=== PATIENT | male | born 1955 | race Caucasian/White ===

== ENCOUNTER → 2019-07-13 15:55 | Outpatient (CLI) | payer OTHER, SELFPAY ==
[2019-07-13 17:12] LABS: Absolute Lymphocyte Count 2.35 X10^3/uL (0.83-4.51); Absolute Neutrophil Count 4.1 X10^3/uL (2.0-7.7); Basophil# 0.04 X10^3/uL; Basophil% 0.5 % (0-1); Eosinophil# 0.33 X10^3/uL; Eosinophils% 4.3 % (0-5); Hematocrit 43.8 % (40-54); Hemoglobin 14.3 g/dL (13.0-16.5); Lymphocyte # 2.35 X10^3/ul (4.0); Lymphocyte % 30.6 % (19-41); Mean Corp Hgb Conc 32.6 g/dL (32-36); Mean Platelet Vol. 10.9 fl (6.2-12.0); Monocyte# 0.87 X10^3/uL; Monocyte% 11.3 % (0-10); NRBC Flagged by Analyzer 0 % (0-5); Neutrophil # 4.07 X10^3/uL (2.7-7.7); Platelet Count 183 K/mm3 (150-450); RBC Distribution Width CV 13.6 % (11.6-14.6); RBC Distribution Width SD 47.5 fl (35.1-43.9); Red Blood Count 4.61 M/mm3 (4.6-6.2); White Blood Count 7.7 K/mm3 (4.4-11.0)
[2019-07-13 17:25] LABS: Erythrocyte Sedimentation Rate 7 mm/hr (0-20)
[2019-07-13 17:55] LABS: CRP < 2.90 mg/L (0.0-3.0)
== END ==
PROVIDERS: Family Provider Family Medicine; PCP Family Medicine; Referring Provider Physician Assistant; Visit Provider Physician Assistant
DX: Z96.641 Presence of right artificial hip joint (principal)
CPT/HCPCS: 36415; 85025; 85652; 86140

== ENCOUNTER → 2019-08-25 07:49 | Outpatient (CLI) | payer OTHER, SELFPAY ==
--- NOTE | 2019-08-25 08:30 | MRI_ITS ---
STUDY: MRI RIGHT HIP REASON FOR EXAM: Male, 64 years old. RIGHT HIP PAIN S/P PROTHESIS. Metal reduction sequences TECHNIQUE: Standardized fat and water weighted pulse sequences were obtained in all 3 orthogonal planes. COMPARISON: X-ray August 16, 2011. FINDINGS: There is right hip replacement. There is small cystic focus of the intertrochanteric region of the proximal femur adjacent to the prosthesis, series 7 image . There is no demonstrated fracture. Normal gluteus minimus, medius and iliopsoas tendons and distal insertions. There is no trochanteric, iliopsoas or iliopectineal bursitis. Normal superior and inferior pubic rami. There is spurring at the pubic symphysis. Normal ischial tuberosity. There is tendinosis of the origins of the hamstring tendons arising from the ischial tuberosity. Normal visualized iliac wing, sacroiliac joint, and sacral ala. Normal visualized soft tissue structures of the pelvis. MRI/Lower Ext Joint Only (Routine) IMPRESSION: Right hip replacement. No fracture. Small cystic focus of the proximal femur. Electronically Signed: Papo Ponce MD at 10:15 EST , Service support ,
== END ==
PROVIDERS: Family Provider Family Medicine; PCP Family Medicine; Referring Provider Orthopaedic Surgery; Visit Provider Orthopaedic Surgery
DX: M25.551 Pain in right hip (principal)
CPT/HCPCS: 73721

== ENCOUNTER 2021-09-07 13:53 | Emergency (ER) | payer MEDICARE, SELFPAY ==
[2021-09-07 13:54] VITALS: BP 101/68; PULSE 70; RESP 20; TEMP 36.7; O2SAT 96; BMI 26.6
--- NOTE | 2021-09-07 13:59 | CT_ITS ---
STUDY: CT BRAIN WITHOUT CONTRAST REASON FOR EXAM: Male, 66 years old. FALL / HEAD INJURY / VISION ISSUES / LIGHT HEADED -- WAITING ROOM RADIATION DOSAGE (If Supplied By Facility): CTDIvol = ( 47.06 ) mGy, DLP = ( 943.26 ) mGycm TECHNIQUE: Transaxial CT imaging of the brain was performed without administration of intravenous contrast material. Individualized dose optimization techniques were used for this CT. COMPARISON: No relevant priors. FINDINGS: Normal soft tissue structures. Normal calvarium. Normal size ventricles and extra-axial spaces for the patient''s age. Normal white matter tracts of the cerebral hemispheres. Normal basal ganglia and thalami. Normal brainstem. Normal cerebellum. There is no intracranial hemorrhage. There are no findings of an acute ischemic infarction. Mucosal thickening of the right maxillary sinus. CT/Brain/Head without Contrast IMPRESSION: Normal unenhanced CT scan of the brain. Mucosal thickening at the base of the right maxillary sinus. Electronically Signed: Erasto Vasquez MD at 14:26 EST , Service support ,
[2021-09-07 17:15] VITALS: BP 121/79; PULSE 54; RESP 14; O2SAT 99
--- NOTE | 2021-09-07 17:38 | EKG12_ITS ---
Test Reason : SYNCOPE Blood Pressure : / mmHG Vent. Rate : 052 BPM Atrial Rate : 052 BPM P-R Int : 150 ms QRS Dur : 088 ms QT Int : 446 ms P-R-T Axes : 041 016 005 degrees QTc Int : 414 ms Sinus bradycardia Otherwise normal ECG Confirmed by SHRAVAN GAMBLE, CLAIRE ([id number]), technical editor STEFAN FARAH ([id number]) on 09/08/2021 11:28:32 AM Referred By: PAUL Confirmed By:CLAIRE CHENEY MD
--- NOTE | 2021-09-07 17:45 | EX.ED.DYSGE1 ---
HPI History of Present Illness Chief Complaint: Syncope Informant: patient and spouse/S.O. Narrative Narrative: Patient is a 66-year-old male presenting after syncopal episode. Patient states he started having symptoms 7 days ago. He has had cough, loss of taste and smell, decreased appetite, poor oral intake, lightheadedness, diarrhea, dizziness and blurry vision. He denies chest pain or shortness of breath. This morning he slept until 1030 which is very abnormal for him. When he went to the kitchen he felt lightheaded. He ended up having a syncopal episode and hit the back of his head on the concrete floor. Patient states he felt nauseous and dizzy right before this. He did take Imodium today for his diarrhea. 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 He is no longer on any anticoagulation. He denies any leg swelling. is concerned that he is dehydrated. A feeling of her who is a nurse came over and checked his vital signs and states that everything was normal however because he hit his head she recommend he come to the emergency room. Patient is assuming he has COVID-19 as him and his both have symptoms however has not been able to get tested. He has not had any prior vaccinations. [facility] Medical History Arthritis Home Medications meloxicam 7.5 mg PO DAILY 09/07/21 [History Last Taken Unknown] Allergy/AdvReac Type Severity Reaction Status Date / Time No Known Allergies Allergy Verified 09/07/21 13:56 Social History Smoking Status: Never smoker ROS ROS ED Constitutional Constitutional ED: Reports sweats; Denies chills or fever(s) Eyes Eyes: Reports blurry vision; Denies change in vision ENT ENT ED: Denies ear pain or rhinorrhea Cardiovascular Cardiovascular: Reports other Details: syncope ; Denies chest pain Respiratory/Chest Respiratory/Chest: Reports cough; Denies dyspnea Gastrointestinal Gastrointestinal: Reports diarrhea, nausea, vomiting and other Details: posttussive vomiting ; Denies abdominal pain Genitourinary Genitourinary ED: Denies dysuria or hematuria Musculoskeletal Musculoskeletal: Reports myalgias; Denies arthralgias Integumentary Denies Abrasions or rash Neurologic Neurologic: Reports headache(s) and weakness Psychiatric Psychiatric: Denies depression EXAM Physical Exam Const Vital Signs: 09/07/21 13:54 09/07/21 17:10 09/07/21 17:15 Temperature 98.1 F Temperature Source Temporal Pulse Rate 70 54 L Respiratory Rate 20 H 14 Respiratory Effort Normal Non-Labored Respiratory Pattern Normal Blood Pressure 101/68 121/79 H Blood Pressure Mean 79 93 Pulse Ox 96 99 Oxygen Delivery Method Room Air Room Air 09/07/21 19:24 09/07/21 20:40 Temperature 98.1 F Temperature Source Temporal Pulse Rate 80 74 Respiratory Rate 15 17 Respiratory Effort Respiratory Pattern Blood Pressure 133/71 H 135/71 H Blood Pressure Mean 91 92 Pulse Ox 97 98 Oxygen Delivery Method Room Air Room Air Positive well nourished and well developed General Appearance ED: well developed HEENT Reports TM's clear and moist mucous membranes HEENT Narrative: small contusion right posterior scalp. trauma; Negative for tenderness Tympanic Membrane ED: Yes TM's clear Eyes PERRL and EOMs intact bilaterally Neck no lymphadenopathy, supple and no JVD Resp normal respiratory effort Resp Narrative: Crackles at the base bilaterally Auscultation: diminished lung sounds Cardio regular rate, regular rhythm and no murmurs GI normal to inspection, nondistended, normoactive bowel sounds Palpation: soft Back/Spine no CVA tenderness Cervical Spine: Negative for cervical spine tenderness Thoracic Spine / Upper Back: Negative for thoracic spinal tenderness Extremity normal to inspection General Extremety ED: Negative for edema or tenderness General Extremity: Negative for edema Neuro oriented x3 and CN's II-XII intact bilaterally Sensorium / Orientation: alert Motor Exam: general weakness Psych mental status grossly normal Skin no rashes or lesions noted MDM MDM MDM Narrative Medical decision making narrative: Patient evaluated with syncope and in association with COVID-19 symptoms. He is on day 7 of symptoms. Feels ill but nontoxic. Covid test is ordered as he is not had one formally yet and it is positive. His D-dimer is elevated so CTA is ordered to rule out PE as a cause of his syncope. This is negative for PE but does show bilateral patchy groundglass opacities consistent with COVID-19 pneumonia. There are incidental findings of lung nodules which patient is informed of and will follow up outpatient with his PCP. Patient has a head CT that does not show any acute process. He is not having significant electrolyte abnormalities. His sodium is mildly low. He is given a bolus of IV fluids. Patient ambulates in the ER and does well and he also does not desaturate. Patient will be discharged home with outpatient follow-up. I do not think he requires antibiotics as I think his infection is all viral and not bacterial. Is given return precautions. He is not hypoxic he does not require steroids. Lab Data Attestation: I reviewed the patient's lab results. Labs: Laboratory Results - last 24 hr 09/07/21 09/07/21 09/07/21 17:00 17:00 17:50 WBC 5.3 RBC 4.85 Hgb 14.8 Hct 44.2 MCV 91.1 MCH 30.5 MCHC 33.5 RDW Std Deviation 46.4 H RDW Coeff of Maxwell 13.6 Plt Count 128 L MPV 11.3 Immature Gran % (Auto) 0.200 Neut % (Auto) 64.5 Lymph % (Auto) 26.1 [place] % (Auto) 8.8 Eos % (Auto) 0.0 Baso % (Auto) 0.4 Absolute Neuts (auto) 3.4 Absolute Lymphs (auto) 1.39 Nucleated RBC % 0 D-Dimer Quant (PE/DVT) 1.50 H* Sodium 132 L Potassium 4.3 Chloride 100 Carbon Dioxide 26.0 Anion Gap 6 BUN 17 Creatinine 1.04 Estim Creat Clear Calc 70.81 Est GFR (MDRD) Af Amer 92 Est GFR (MDRD) Non-Af 76 BUN/Creatinine Ratio 16.3 Glucose 103 Lactic Acid Calcium 8.4 L Total Bilirubin 1.10 H AST 33 ALT 30 Alkaline Phosphatase 48 Total Creatine Kinase 112 C-React Prot Ext Range 20.00 H Total Protein 7.7 Albumin 3.4 Globulin 4.3 H Albumin/Globulin Ratio 0.8 L Procalcitonin 09/07/21 09/07/21 17:50 17:50 WBC RBC Hgb Hct MCV MCH MCHC RDW Std Deviation RDW Coeff of Maxwell Plt Count MPV Immature Gran % (Auto) Neut % (Auto) Lymph % (Auto) [place] % (Auto) Eos % (Auto) Baso % (Auto) Absolute Neuts (auto) Absolute Lymphs (auto) Nucleated RBC % D-Dimer Quant (PE/DVT) Sodium Potassium Chloride Carbon Dioxide Anion Gap BUN Creatinine Estim Creat Clear Calc Est GFR (MDRD) Af Amer Est GFR (MDRD) Non-Af BUN/Creatinine Ratio Glucose Lactic Acid 1.0 Calcium Total Bilirubin AST ALT Alkaline Phosphatase Total Creatine Kinase C-React Prot Ext Range Total Protein Albumin Globulin Albumin/Globulin Ratio Procalcitonin 0.12 H Radiography Chest X-Ray - ED: 1 View, Read by ED Physician, Read by Radiologist, Right Infiltrate and Left Infiltrate Diagnostic Testing: Clinical Impression(s) from Imaging Studies Brain CT 09/07/21 13:59 IMPRESSION: Normal unenhanced CT scan of the brain. Mucosal thickening at the base of the right maxillary sinus. Electronically Signed: Erasto Vasquez MD at 14:26 EST , Service support , Chest X-Ray 09/07/21 18:25 IMPRESSION: Bibasilar groundglass pulmonary infiltrates consistent with COVID pneumonia. Electronically Signed: Mark Juan DO at 19:37 EST Tel [phone], Service support , Chest CTA 09/07/21 18:52 IMPRESSION: 1. No evidence of pulmonary embolus. 2. No aortic dissection or aneurysm. 3. Patchy peripheral groundglass infiltrates. Question: Pneumonia. 4. Soft tissue nodules in the right middle lobe. Fleischner Society Guidelines for low-risk patients, no follow-up is necessary. For high-risk patients (smoking history or other known risk factors) an optional chest CT at 12 months could be performed. Electronically Signed: Mark Juan DO at 20:30 EST Tel [phone], Service support , Rhythm Strip Rhythm Strip: Sinus Rhythm Rate: 52 Ectopy: None EKG Initial EKG: Attestation: I personally reviewed and interpreted this EKG as follows: Interpretation: Sinus Bradycardia Comments: Sinus bradycardia rate of 52 Normal axis Normal intervals Normal ST segments No change from to prior EKG on 06/13/2014 Discharge Plan Triage Chief Complaint: Syncope ED Provider: Angela Fuentes Dx/Rx/DC Orders Clinical Impression: Episode of syncope, Closed head injury, Pneumonia due to 2019-nCoV Instructions: Coronavirus Disease 2019 (COVID-19): Caring for Yourself or Others, ED Dizziness or Syncope ... Prescriptions: No Action meloxicam 15 mg tablet 7.5 mg PO DAILY RF: 0 Primary Care Provider: Cem Hooks Referrals: Cem Hooks DO [Primary Care Provider] - Disposition Disposition: Home, Self Care
[2021-09-07 17:52] LABS: Absolute Lymphocyte Count 1.39 X10^3/uL (0.83-4.51); Absolute Neutrophil Count 3.4 X10^3/uL (2.0-7.7); Basophil# 0.02 X10^3/uL; Basophil% 0.4 % (0-1); Hematocrit 44.2 % (40-54); Hemoglobin 14.8 g/dL (13.0-16.5); Lymphocyte # 1.39 X10^3/ul (0.83-4.51); Lymphocyte % 26.1 % (19-41); Mean Corp Hgb Conc 33.5 g/dL (32-36); Mean Corpuscular Hgb 30.5 pg (27.0-32.0); Mean Corpuscular Volume 91.1 fL (80-94); Mean Platelet Vol. 11.3 fl (6.2-12.0); Monocyte# 0.47 X10^3/uL; Monocyte% 8.8 % (0-10); NRBC Flagged by Analyzer 0 % (0-5); Neutrophil # 3.44 X10^3/uL (2.7-7.7); Neutrophil % 64.5 % (47-70); Platelet Count 128 K/mm3 (150-450); RBC Distribution Width CV 13.6 % (11.6-14.6); RBC Distribution Width SD 46.4 fl (35.1-43.9); Red Blood Count 4.85 M/mm3 (4.6-6.2); White Blood Count 5.3 K/mm3 (4.4-11.0)
[2021-09-07] MEDS: 0.9% Normal Saline 1,000 ML 999 ML IV (17:59)
[2021-09-07 18:02] LABS: ALB/GLOB Ratio 0.8 RATIO (0.9-2.4); AST(SGOT) 33 U/L (15-37); Alanine Aminotransfer ALT/SGPT 30 U/L (16-61); Albumin, Serum 3.4 g/dL (3.2-5.0); Alkaline Phosphatase 48 U/L (45-117); Anion Gap 6 (5-15); BUN 17 mg/dL (7-18); BUN/Creat Ratio 16.3 RATIO (10-20); CPK Total, Creatine Kinase 112 U/L (39-308); Calcium,Total 8.4 mg/dL (8.5-10.1); Chloride 100 mmol/L (98-107); Creatinine, Serum 1.04 mg/dL (0.70-1.30); EST Glomerular Filtration Rate 76 mL/min (>60); Est Glom Filt Rate - Afr Amer 92 mL/min (>60); Estimated Creatinine Clearance 70.81 ml/min; Globulin 4.3 g/dL (2.2-4.2); Glucose 103 mg/dL (74-106); Potassium 4.3 mmol/L (3.5-5.1); Protein, Total 7.7 g/dL (6.4-8.2); Sodium Level 132 mmol/L (136-145)
--- NOTE | 2021-09-07 18:25 | RAD_ITS ---
STUDY: X-RAY CHEST REASON FOR EXAM: Male, 66 years old. Cough. Lightheadedness and weakness. Syncopal episode at home with trauma to the back of the head. Day 6 of COVID symptoms. TECHNIQUE: Single AP portable view of the chest. COMPARISON: None. FINDINGS: Lungs are well-expanded. There is minimal ground glass infiltrates at the lung bases. There is no demonstrated pleural abnormality. Normal size heart. Normal mediastinum and nino. Normal visualized pulmonary arteries. Normal visualized aortic arch and descending thoracic aorta. Normal visualized thoracic spine. Normal visualized ribs, clavicles, and shoulders. There is no demonstrated abnormality of the visualized soft tissue structures of the upper abdomen. RAD/Chest 1 View (Portable) IMPRESSION: Bibasilar groundglass pulmonary infiltrates consistent with COVID pneumonia. Electronically Signed: Mark Juan DO at 19:37 EST Tel [phone], Service support ,
--- NOTE | 2021-09-07 18:52 | CT_ITS ---
STUDY: CTA CHEST REASON FOR EXAM: Male, 66 years old. Syncope. Elevated d-dimer. RADIATION DOSAGE (If Supplied By Facility): CTDIvol = ( 9.82 ) mGy, DLP = ( 362.67 ) mGycm TECHNIQUE: The examination was performed with the intravenous administration of IV 100mL Isovue-370. Post-processing of the angiographic images was performed, with multiplanar reformation and 3D reconstruction. Individualized dose optimization techniques were used for this CT. COMPARISON: Chest, 09/07/2021 FINDINGS: Normal enhancement of the main pulmonary artery and right and left pulmonary arteries. Normal enhancement of the bilateral peripheral pulmonary arteries. There is no demonstrated pulmonary embolism. Mild atherosclerotic tortuosity of the thoracic aorta with no aneurysm. There is no demonstrated aortic dissection. Normal heart and pericardium. Nonspecific subcentimeter mediastinal lymphadenopathy. Normal hilar regions. Normal visualized trachea and bronchi. The lungs are well expanded. Is patchy peripheral groundglass infiltrates most marked in the lung bases. There is a 5 mm soft tissue nodule in the right middle lobe seen best on image 94 of series 2. On image 97 there is a pleural-based soft tissue nodule measuring 4 mm. On image 103 there is a 2 mm soft tissue nodule in the right middle lobe along the horizontal fissure. Normal pleura. Normal chest wall structures. There are degenerative changes of thoracic spine. Normal visualized upper abdomen. CT/CTA Chest W/WO Contrast IMPRESSION: 1. No evidence of pulmonary embolus. 2. No aortic dissection or aneurysm. 3. Patchy peripheral groundglass infiltrates. Question: Pneumonia. 4. Soft tissue nodules in the right middle lobe. Fleischner Society Guidelines for low-risk patients, no follow-up is necessary. For high-risk patients (smoking history or other known risk factors) an optional chest CT at 12 months could be performed. Electronically Signed: Mark Juan DO at 20:30 EST Tel [phone], Service support ,
[2021-09-07 18:55] LABS: Procalcitonin 0.12 ng/mL (0.00-0.09)
[2021-09-07 19:24] VITALS: BP 133/71; PULSE 80; RESP 15; RESP 18; TEMP 36.7; O2SAT 97
[2021-09-07 20:34] VITALS: O2SAT 98
[2021-09-07 20:40] VITALS: BP 135/71; PULSE 74; RESP 17; O2SAT 98
== END 2021-09-07 21:13 | disposition home or self-care (01) ==
PROVIDERS: Emergency Provider Emergency Medicine; PCP Family Medicine; Visit Provider Emergency Medicine
DX: U07.1 COVID-19 (principal); J12.82 Pneumonia due to coronavirus disease 2019; S09.90XA Unspecified injury of head, initial encounter; R55 Syncope and collapse; Z86.711 Personal history of pulmonary embolism; W01.198A Fall on same level from slipping, tripping and stumbling with subsequent striking against other object, initial encounter; Y92.010 Kitchen of single-family (private) house as the place of occurrence of the external cause
CPT/HCPCS: 70450; 71045; 71275; 80053; 82550; 83605; 84145; 85025; 85379; 86140; 87040; 87426; 93005; 96360; 99284; J7030; Q9967

== ENCOUNTER 2021-09-11 18:34 | Observation (INO) | payer MEDICARE, SELFPAY ==
[2021-09-11] VITALS (7 sets, daily range): BP systolic 114–121; BP diastolic 75–78; PULSE 58–73; RESP 18–22; TEMP 36.8–37.9; O2SAT 87–97; BMI 27.1
--- NOTE | 2021-09-11 18:46 | EKG12_ITS ---
Test Reason : SOB Blood Pressure : / mmHG Vent. Rate : 068 BPM Atrial Rate : 068 BPM P-R Int : 132 ms QRS Dur : 088 ms QT Int : 406 ms P-R-T Axes : 029 004 -02 degrees QTc Int : 431 ms Normal sinus rhythm Normal ECG Confirmed by SHRAVAN GAMBLE, CLAIRE ([id number]), research editor DWIGHT PRIETO ([id number]) on 09/16/2021 11:20:03 AM Referred By: RAVI Confirmed By:CLAIRE CHENEY MD
[2021-09-11 19:10] LABS: Absolute Neutrophil Count 4.9 X10^3/uL (2.0-7.7); Basophil# 0.01 X10^3/uL; Basophil% 0.2 % (0-1); Eosinophil# 0.01 X10^3/uL; Eosinophils% 0.2 % (0-5); Hematocrit 39.5 % (40-54); Hemoglobin 13.1 g/dL (13.0-16.5); Lymphocyte % 14.5 % (19-41); Mean Corp Hgb Conc 33.2 g/dL (32-36); Mean Corpuscular Hgb 30.1 pg (27.0-32.0); Mean Corpuscular Volume 90.8 fL (80-94); Mean Platelet Vol. 10.6 fl (6.2-12.0); Monocyte# 0.33 X10^3/uL; Monocyte% 5.3 % (0-10); NRBC Flagged by Analyzer 0 % (0-5); Neutrophil # 4.91 X10^3/uL (2.7-7.7); POSITIVE MORPHOLOGY YES; Platelet Count 176 K/mm3 (150-450); RBC Distribution Width CV 13.7 % (11.6-14.6); Red Blood Count 4.35 M/mm3 (4.6-6.2); White Blood Count 6.2 K/mm3 (4.4-11.0)
[2021-09-11] MEDS: Acetaminophen 500 MG Tablet 1000 MG PO (19:11)
[2021-09-11 19:12] LABS: Differential Indicated SCAN CRITERIA MET
--- NOTE | 2021-09-11 19:15 | RAD_ITS ---
STUDY: X-RAY CHEST REASON FOR EXAM: Male, 66 years old. CHEST PAIN cough TECHNIQUE: XR Chest 1 View COMPARISON: 09.07.21 FINDINGS: There are bilateral pleural effusions. There are bilateral infiltrates. Normal size heart. Normal mediastinum and nino. Normal visualized pulmonary arteries. There is atherosclerotic calcification of the aortic arch with tortuosity. There are diffuse degenerative changes of the visualized thoracic spine. There is degenerative osteoarthritis of the bilateral shoulders. There is no demonstrated abnormality of the visualized soft tissue structures of the upper abdomen. RAD/Chest 1 View (Portable) IMPRESSION: Pulmonary findings appear worse. Electronically Signed: Santos Ryan MD at 19:46 EST , Service support ,
[2021-09-11 19:30] LABS: ALB/GLOB Ratio 0.6 RATIO (0.9-2.4); AST(SGOT) 36 U/L (15-37); Alanine Aminotransfer ALT/SGPT 22 U/L (16-61); Albumin, Serum 2.6 g/dL (3.2-5.0); Alkaline Phosphatase 41 U/L (45-117); Anion Gap 8 (5-15); BUN 16 mg/dL (7-18); BUN/Creat Ratio 18.2 RATIO (10-20); Chloride 101 mmol/L (98-107); Creatinine, Serum 0.88 mg/dL (0.70-1.30); EST Glomerular Filtration Rate 92 mL/min (>60); Est Glom Filt Rate - Afr Amer 112 mL/min (>60); Estimated Creatinine Clearance 83.69 ml/min; Globulin 4.1 g/dL (2.2-4.2); Glucose 118 mg/dL (74-106); Potassium 3.7 mmol/L (3.5-5.1); Protein, Total 6.7 g/dL (6.4-8.2); Sodium Level 135 mmol/L (136-145); Troponin-I HS 17 pg/mL (3.0-78.0)
[2021-09-11 19:58] LABS: D-Dimer Quantitative (DVT/PE) 2.13 FEU/ug/m (0.27-0.49)
[2021-09-11 20:03] LABS: Platelet Estimate ADEQUATE (ADEQ); Red Cell Morphology NORM C+C NORMAL (NORM C&C)
[2021-09-11] MEDS: dexAMETHasone 10 MG/ML Vial 6 MG IV (20:46)
--- NOTE | 2021-09-11 21:31 | EDS_ITS ---
HPI History of Present Illness Chief Complaint: Shortness of Breath Narrative Narrative: 66-year-old female on day 11 of COVID-19 symptoms. He is presenting with low pulse ox is at home and states has been in the 70s. Patient continues to have fevers. He states he is hydrating better now. He is able to eat and drink. Denies abdominal pain. He states he does not have any chest pain but he is short of breath. Patient was not vaccinated for COVID-19. He was not referred for monoclonal antibodies on his last visit but also states he would not have taken them. [facility] Medical History Arthritis Home Medications meloxicam 7.5 mg PO DAILY 09/07/21 [History Last Taken Unknown] doxycycline hyclate 100 mg PO BID 09/11/21 [History Last Taken Unknown] meclizine 25 mg PO TID PRN 09/11/21 [History Last Taken Unknown] Allergy/AdvReac Type Severity Reaction Status Date / Time No Known Allergies Allergy Verified 09/07/21 13:56 Surgical History History of right hip replacement History of rotator cuff surgery Social History Smoking Status: Never smoker ROS ROS ED Constitutional Constitutional ED: Reports chills and fever(s) Eyes Eyes: Denies blurry vision or diplopia ENT ENT ED: Denies rhinorrhea or sore throat Cardiovascular Cardiovascular: Denies chest pain or palpitations Respiratory/Chest Respiratory/Chest: Reports cough, dyspnea and dyspnea on exertion Gastrointestinal Gastrointestinal: Reports diarrhea; Denies abdominal pain, nausea or vomiting Genitourinary Genitourinary ED: Denies dysuria or hematuria Musculoskeletal Musculoskeletal: Reports myalgias; Denies arthralgias or neck pain Integumentary Denies Abrasions or rash Neurologic Neurologic: Reports headache(s); Denies paresthesias or weakness EXAM Physical Exam Const Vital Signs: 09/11/21 18:35 09/11/21 18:37 09/11/21 18:38 Temperature 100.2 F H 100.2 F H Temperature Source Oral Oral Pulse Rate 73 73 Respiratory Rate 22 H 22 H Respiratory Depth Shallow Respiratory Pattern Tachypnea Blood Pressure 116/78 116/78 Blood Pressure Mean 90 90 Pulse Ox 87 87 94 Oxygen Delivery Method Room Air Room Air Nasal Cannula Oxygen Flow Rate (L/min) 2 09/11/21 19:30 Temperature Temperature Source Pulse Rate 65 Respiratory Rate 18 Respiratory Depth Respiratory Pattern Blood Pressure 121/78 H Blood Pressure Mean 92 Pulse Ox 97 Oxygen Delivery Method Nasal Cannula Oxygen Flow Rate (L/min) 2 Positive well nourished General Appearance ED: NAD; Negative for pallor HEENT Reports dry mucous membranes atraumatic Mouth ED: Yes dry mucous membranes Mouth: dry mucous membranes Eyes PERRL and EOMs intact bilaterally Neck no lymphadenopathy and supple Resp normal respiratory effort and clear to auscultation bilaterally Cardio regular rate and regular rhythm GI non-tender and non-distended Palpation: soft Neuro oriented x3 and CN's II-XII intact bilaterally Sensorium / Orientation: alert Motor Exam: strength 5/5 throughout Psych mental status grossly normal Thought Process: normal thought process Skin General Skin Exam: Negative for jaundice or pallor Rashes: no rashes MDM MDM MDM Narrative Medical decision making narrative: 66-year-old male presenting on day 11 of COVID-19 symptoms. He is already tested positive for COVID-19 here at [facility]. He returns with low pulse ox. When ambulated on 4 L he still maintains a pulse ox of 86%. He is stable while sitting in the bed. EKG is sinus rhythm with a ventricular rate of 68 bpm without sign of ischemic change or dysrhythmia on my interpretation. CBC shows no leukocytosis. Hemoglobin hematocrit are stable. Platelets are normal. Creatinine is within normal limits and electrolytes are unremarkable. LFTs are normal. D-dimer was elevated at 2.13 however the patient refuses another CTA because he does not want to go to the scanner because it hurts his shoulders to go up over his head. High-sensitivity troponin is 17. I counseled him that while it is unlikely that he had a blood clot form in the interim since his last CTA his D-dimer was further elevated and I cannot prove that he does not have a blood clot and he acknowledges the risk of but still refuses due to shoulder pain. His is in the room and she acknowledges understanding of his risk as well. His chest x-ray shows bilateral pulmonary infiltrates which appear to be worse on my interpretation and the radiologist does agree. Patient requiring oxygen now and he was given dexamethasone. Patient will be discussed with the hospitalist for admission. Impression: 1 COVID-19 pneumonitis 2. Elevated D-dimer 3. Hypoxic respiratory failure Lab Data Labs: Laboratory Results - last 24 hr 09/11/21 09/11/21 09/11/21 18:48 18:48 18:48 WBC 6.2 RBC 4.35 L Hgb 13.1 Hct 39.5 L MCV 90.8 MCH 30.1 MCHC 33.2 RDW Std Deviation 46.0 H RDW Coeff of Maxwell 13.7 Plt Count 176 MPV 10.6 Immature Gran % (Auto) 0.800 Neut % (Auto) 79.0 H Lymph % (Auto) 14.5 L [place] % (Auto) 5.3 Eos % (Auto) 0.2 Baso % (Auto) 0.2 Absolute Neuts (auto) 4.9 Absolute Lymphs (auto) 0.90 Nucleated RBC % 0 Platelet Estimate ADEQUATE RBC Morphology NORM C+C D-Dimer Quant (PE/DVT) 2.13 H* Sodium 135 L Potassium 3.7 Chloride 101 Carbon Dioxide 26.0 Anion Gap 8 BUN 16 Creatinine 0.88 Estim Creat Clear Calc 83.69 Est GFR (MDRD) Af Amer 112 Est GFR (MDRD) Non-Af 92 BUN/Creatinine Ratio 18.2 Glucose 118 H Calcium 8.0 L Total Bilirubin 1.00 AST 36 ALT 22 Alkaline Phosphatase 41 L Troponin I High Sens 17 Total Protein 6.7 Albumin 2.6 L Globulin 4.1 Albumin/Globulin Ratio 0.6 L Radiography Diagnostic Testing: Clinical Impression(s) from Imaging Studies Chest X-Ray 09/11/21 19:15 IMPRESSION: Pulmonary findings appear worse. Electronically Signed: Santos Ryan MD at 19:46 EST , Service support , Discharge Plan Triage Chief Complaint: Shortness of Breath ED Provider: Scott Hung Dx/Rx/DC Orders Prescriptions: No Action meloxicam 15 mg tablet 7.5 mg PO DAILY RF: 0 meclizine 25 mg Tablet 25 mg PO TID PRN (Reason: Dizziness) RF: 0 doxycycline hyclate 100 mg Tablet 100 mg PO BID RF: 0 Primary Care Provider: Cem Hooks
--- NOTE | 2021-09-11 22:02 | HP.PCM.HOS_ITS ---
HPI - General HPI Narrative ENRIQUE FORD, is a 66 M with no significant medical history presenting with a Covid-like symptoms. Patient has had shortness of breath for the past 4 days. On the day of presentation his shortness of breath worsened. He was found to be hypoxic with home oxygen saturation of 81%. Associated with his symptoms is fever, chills, diarrhea, body aches, anorexia. He had anosmia and dysgeusia which has since improved. His Covid-like symptoms has been going for 11days. Patient was at hospital on 09/07/2019 and had a chest CTA. At that time he complained of diarrhea, weakness and a fall. A covid test at that time was positive for COVID-19. On this presentation D-dimer was elevated more than previous. CTA chest was offered but patient refused it because he had pain with Chest CTA. Previously, patient was referred for monoclonal antibody. However reportedly patient did not qualify at that time and even if he qualified he would not received the monoclonal antibody because of stories he has had about monoclonal antibodies. Patient is on antibiotics (doxycycline) for a possible superimposed bacterial pneumonia. [facility] Medical History Arthritis Home Medications meloxicam 7.5 mg PO DAILY 09/07/21 [History Last Taken Unknown] doxycycline hyclate 100 mg PO BID 09/11/21 [History Last Taken Unknown] meclizine 25 mg PO TID PRN 09/11/21 [History Last Taken Unknown] Allergy/AdvReac Type Severity Reaction Status Date / Time No Known Allergies Allergy Verified 09/07/21 13:56 Family History Other Atrial fibrillation Glaucoma Surgical History History of right hip replacement History of rotator cuff surgery Social History Smoking Status: Never smoker ROS ROS Narrative Constitutional: Reports fever, chills, fatigue, anorexia. Denies change in weight Eyes: Denies blurry vision, change in eye color, change in vision, discharge from eye(s), double vision, erythema, eye pain, loss of vision or other HEENT: Denies abnormal hearing, dysphagia, ear pain, epistaxis, headache(s), hearing loss, nasal congestion, nasal discharge, post nasal drip, sinus pressure, sore throat or other Cardiovascular: Denies chest pain or palpitations. Respiratory/Chest: Reports a productive cough. Reports shortness of breath. Denies wheezes Gastrointestinal: Reports diarrhea. Denies abdominal pain, coffee ground emesis, constipation, dyspepsia, hematemesis, hematochezia, , melena, nausea, vomiting or other Genitourinary: Denies burning urination, difficulty urinating, dysuria, hematuria, nocturia, urinary frequency, urinary hesitancy, urinary incontinence, urinary urgency or other Musculoskeletal: Reports myalgia. Denies arthralgias, joint pain. Neurologic: Denies abnormal gait, abnormal speech, confusion, disequilibrium, dizziness, focal weakness, headache(s), numbness, paresthesias, seizure-like activity, seizures, syncope, tingling, tremor(s) or other Psychiatric: Denies anxiety, depression, homicidal ideation, suicidal ideation or other Endocrinology: Denies change in body appearance, cold intolerance, excessive sweating, heat intolerance, polydipsia, polyuria or other Hematologic/Lymphatic: Denies anemia, easy bleeding, easy bruising, lymphadenopathy or other Integumentary: Denies rashes Allergic/Immunologic: Denies rhinitis, hives, eczema, asthma or other Vital Signs Vital Signs Vital Signs: 09/11/21 18:35 09/11/21 18:37 09/11/21 18:38 Temperature 100.2 F H 100.2 F H Temperature Source Oral Oral Pulse Rate 73 73 Respiratory Rate 22 H 22 H Respiratory Depth Shallow Respiratory Pattern Tachypnea Blood Pressure 116/78 116/78 Blood Pressure Mean 90 90 Pulse Ox 87 87 94 Oxygen Delivery Method Room Air Room Air Nasal Cannula Oxygen Flow Rate (L/min) 2 09/11/21 19:30 09/11/21 21:35 Temperature 98.3 F Temperature Source Temporal Pulse Rate 65 58 L Respiratory Rate 18 19 H Respiratory Depth Respiratory Pattern Blood Pressure 121/78 H 114/75 Blood Pressure Mean 92 88 Pulse Ox 97 94 Oxygen Delivery Method Nasal Cannula Nasal Cannula Oxygen Flow Rate (L/min) 2 2 Weight Weight: 83.5 kg Body Mass Index (BMI) 27.1 Physical Exam Narrative Physical exam: General: Well-nourished, well-developed. Head: Normocephalic, atraumatic, no tenderness Eyes: PERRLA, EOMI ENT, no trauma, moist mucous membranes, no rhinorrhea Neck: Nontender, full range of motion, no spinal tenderness, deformities, step- off CVS: Regular rate and rhythm. S1-S2 present. No murmur, gallop or rub. Respiratory : Rales, chest wall nontender, no wheezing Abdomen: Soft, nontender, nondistended, normal bowel sounds, no masses : Deferred Back: Nontender, no CVA tenderness, no midline spinal tenderness, deformities, s tep-offs Extremities: Nontender full range of motion, no trauma Skin: Normal color, no trauma, abrasions Neuro: Alert, oriented, cranial nerves II through XII grossly intact. Psychiatry: Normal mood. Normal affect. Not depressed. Not anxious. Results Lab / Micro Data Result Diagrams: 09/11/21 18:48 09/11/21 18:48 Labs: Laboratory Results - last 24 hr 09/11/21 18:48: WBC 6.2, RBC 4.35 L, Hgb 13.1, Hct 39.5 L, MCV 90.8, MCH 30.1, MCHC 33.2, RDW Std Deviation 46.0 H, RDW Coeff of Maxwell 13.7, Plt Count 176, MPV 10.6, Immature Gran % (Auto) 0.800, Neut % (Auto) 79.0 H, Lymph % (Auto) 14.5 L, [place] % (Auto) 5.3, Eos % (Auto) 0.2, Baso % (Auto) 0.2, Absolute Neuts (auto) 4.9, Absolute Lymphs (auto) 0.90, Nucleated RBC % 0, Platelet Estimate ADEQUATE, RBC Morphology NORM C+C 09/11/21 18:48: D-Dimer Quant (PE/DVT) 2.13 H* 09/11/21 18:48: Sodium 135 L, Potassium 3.7, Chloride 101, Carbon Dioxide 26.0, Anion Gap 8, BUN 16, Creatinine 0.88, Estim Creat Clear Calc 83.69, Est GFR (MDRD) Af Amer 112, Est GFR (MDRD) Non-Af 92, BUN/Creatinine Ratio 18.2, Glucose 118 H, Calcium 8.0 L, Total Bilirubin 1.00, AST 36, ALT 22, Alkaline Phosphatase 41 L, Troponin I High Sens 17, Total Protein 6.7, Albumin 2.6 L, Globulin 4.1, Albumin/Globulin Ratio 0.6 L Radiology Impression Chest X-Ray 09/11/21 19:15 IMPRESSION: Pulmonary findings appear worse. Electronically Signed: Santos Ryan MD at 19:46 EST , Service support , Assessment & Plan Assessment/Plan (1) Acute hypoxemic respiratory failure: (2) Pneumonia due to 2019-nCoV: PLAN: Acute hypoxemic respiratory failure secondary to SARS- COV 2 Per nursing ED ambulation with pulse ox patient oxygen saturation with 4 L was 86% with ambulation. D-dimer 2.13. Review of previous D-dimer on 09/07/2021 was1.50 Rapid Covid test on 09/07/2021 was positive Presentation chest x-ray as well as a chest x-ray and CTA on 09/07/2021 was independently interpreted. I agree with radiologist interpretation current chest x-ray appears worse. Check procalcitonin. Received Decadron IV at the emergency department. Decadron p.o. ordered while inpatient. Patient is outside window of remdesivir. Review of labs showed a normal white count of 6.2. Trend CBC and CMP Tylenol for fever Tessalon Perles ordered. Reportedly on home loperamide, continued Will continue his home prescribed doxycycline per patient request. Eliquis ordered DVT Prophylaxis: Eliquis as above. Charges/Coding Visit Charges Inpatient E&M: 84553 Init Hosp L3
[2021-09-12] VITALS (22 sets, daily range): BP systolic 118–130; BP diastolic 68–86; PULSE 45–72; RESP 16–20; TEMP 35.5–36.7; O2SAT 5–98; BMI 24.5
[2021-09-12] MEDS: 0.9% Saline Lock 10 ML Syringe IV ×2 (02:27→20:40)
--- NOTE | 2021-09-12 02:30 | PCS.PANDOC ---
PANDEMIC DOCUMENTATION INITIATED: Date: 04/20/2021 Time: 190
[2021-09-12] MEDS: APIXABAN 5 MG TABLET 10 MG PO ×2 (02:31→10:04)
[2021-09-12] MEDS: Acetaminophen 325 MG Tablet 650 MG PO (04:58)
--- NOTE | 2021-09-12 07:40 | CT_ITS ---
STUDY: CTA CHEST REASON FOR EXAM: Male, 66 years old. Pe RADIATION DOSAGE (If Supplied By Facility): CTDIvol = ( 11.75 ) mGy, DLP = ( 465.06 ) mGycm TECHNIQUE: The examination was performed with the intravenous administration of IV 100mL Isovue-370. Post-processing of the angiographic images was performed, with multiplanar reformation and 3D reconstruction. Individualized dose optimization techniques were used for this CT. COMPARISON: September 07, 2021 CT angiogram chest FINDINGS: Normal enhancement of the main pulmonary artery and right and left pulmonary arteries. Normal enhancement of the bilateral peripheral pulmonary arteries. There is no demonstrated pulmonary embolism. The ascending thoracic aorta measures 3.9 x 3.9 cm. Aorta is partially calcified. At the timing of this study there is limited contrast enhancement of the aorta. There is mild to moderate cardiac enlargement. There is trace coronary calcification. There are reactive appearing mediastinal and hilar lymph nodes measuring 1 to 2 cm. Normal visualized trachea and bronchi. Since prior study there is worsening of the L2 focal groundglass opacities with predominance in the lung periphery. There is worsening consolidation of the lung bases. Normal pleura. Normal chest wall structures. There are degenerative changes of thoracic spine. Normal visualized upper abdomen. CT/CTA Chest W/WO Contrast IMPRESSION: Worsening multifocal pneumonia with greater consolidation in the lung bases. A pattern suspicious for Covid pneumonia. Mild to moderate cardiac enlargement. Borderline aneurysmal dilatation of the ascending thoracic aorta. No visualized pulmonary embolism. Electronically Signed: Debbie Chandler MD at 9:55 EST Tel , Service support ,
[2021-09-12 08:35] LABS: Absolute Lymphocyte Count 1.01 X10^3/uL (0.83-4.51); Absolute Neutrophil Count 2.9 X10^3/uL (2.0-7.7); Basophil# 0.02 X10^3/uL; Basophil% 0.5 % (0-1); Hematocrit 42.9 % (40-54); Hemoglobin 14.2 g/dL (13.0-16.5); Lymphocyte # 1.01 X10^3/ul (0.83-4.51); Lymphocyte % 23.9 % (19-41); Mean Corp Hgb Conc 33.1 g/dL (32-36); Mean Corpuscular Hgb 30.3 pg (27.0-32.0); Mean Corpuscular Volume 91.7 fL (80-94); Mean Platelet Vol. 10.5 fl (6.2-12.0); Monocyte# 0.23 X10^3/uL; Monocyte% 5.5 % (0-10); NRBC Flagged by Analyzer 0 % (0-5); Neutrophil # 2.92 X10^3/uL (2.7-7.7); Neutrophil % 69.2 % (47-70); POSITIVE MORPHOLOGY YES; Platelet Count 189 K/mm3 (150-450); RBC Distribution Width CV 13.9 % (11.6-14.6); RBC Distribution Width SD 47.2 fl (35.1-43.9); Red Blood Count 4.68 M/mm3 (4.6-6.2); White Blood Count 4.2 K/mm3 (4.4-11.0)
[2021-09-12 08:40] LABS: Differential Indicated SCAN CRITERIA MET
[2021-09-12 09:04] LABS: ALB/GLOB Ratio 0.7 RATIO (0.9-2.4); AST(SGOT) 36 U/L (15-37); Alanine Aminotransfer ALT/SGPT 22 U/L (16-61); Albumin, Serum 2.7 g/dL (3.2-5.0); Alkaline Phosphatase 45 U/L (45-117); Anion Gap 10 (5-15); BUN 16 mg/dL (7-18); BUN/Creat Ratio 21.4 RATIO (10-20); Calcium,Total 8.4 mg/dL (8.5-10.1); Chloride 109 mmol/L (98-107); Creatinine, Serum 0.75 mg/dL (0.70-1.30); EST Glomerular Filtration Rate 111 mL/min (>60); Est Glom Filt Rate - Afr Amer 135 mL/min (>60); Estimated Creatinine Clearance 101.39 ml/min; Globulin 3.7 g/dL (2.2-4.2); Glucose 149 mg/dL (74-106); Potassium 4.1 mmol/L (3.5-5.1); Protein, Total 6.4 g/dL (6.4-8.2); Sodium Level 144 mmol/L (136-145)
[2021-09-12 09:06] LABS: Procalcitonin 0.04 ng/mL (0.00-0.09)
--- NOTE | 2021-09-12 09:54 | CASEMGMT ---
RUBINA GALLARDO Assessment: Face to Face with pt for initial transition planning/care coordination assessment. RUBINA GALLARDO introduced self and role at [facility], pt voices understanding and consents to assessment. Pt is A/O x4 and answers all questions appropriately at this time. Pt sitting up in bed with O2 on in no distress. Care providers, pharmacy, and demographics verified/updated. Pt nurse in room during assessment. Admitting Dx: acute hypoxemic resp failure PCP: Aniya Specialists: rachel Marcus Pharmacy:[facility] Insurance:[employer] Prescription Benefit: yes LW/HPOA: Pt states he has a LW/DPOA and his DPOA is his Mary Grace Shetty. He is aware this is not on file at [facility] and he may have brought in to be scanned into his chart. LNOK: Troy Shetty, Living Arrangements: Pt lives with in a three story house with a walk in basement or two steps to enter from the front without a rail. Pt reports being I in ADL's and denies concerns at home. Transportation: Pt drives self and denies concerns with transportation. DME/HHC/SNF: Pt has a pulse ox at home. Denies previous HHC or SNF stays. Pt was first tested at [facility] with a positive result. Pt was positive but is out of isolation. Pt does have family who can provide him with groceries and supplies while in quarantine. Discussed local in network DME companies should pt need O2 upon dc, pt denies preference but is fine with [employer]. Pt states no concerns with going home at time of dc. Pt states no further concerns/needs. CM to follow. Advised pt to ask CM if any further question/concerns/needs arise, voices understanding. Pt Goal: Home Plan: Home, follow for home [facility]
[2021-09-12] MEDS: dexAMETHasone 2 MG TABLET 6 MG PO (10:04)
[2021-09-12] MEDS: Doxycycline 100 MG CAPSULE PO (10:04)
[2021-09-12] MEDS: Meloxicam 7.5 MG Tablet PO (10:04)
--- NOTE | 2021-09-12 10:22 | NURSING ---
will leave on 6L high flow for activity. As pt became more hypoxic closer to the 5 minute kevin.
--- NOTE | 2021-09-12 18:39 | PCM.PN.HOSP ---
Subjective Subjective Patient states he feels his breathing is stabilized. He is currently on 6 L nasal cannula and sats are in the mid to upper 90s. He desatted to 86% on 5 L with ambulation and was 87% on room air without oxygen. Objective Data Objective Data Vital Signs: Vital Signs Temp Pulse Resp BP Pulse Ox 95.9 F L 56 L 20 H 122/70 H 96 09/12/21 15:50 09/12/21 17:06 09/12/21 15:50 09/12/21 15:50 09/12/21 15:50 Oxygen Flow Rate (L/min) [ 86 AMBULATING with Oxygen #3] Oxygen Flow Rate (L/min) [ 4 AMBULATING with Oxygen #2] Oxygen Flow Rate (L/min) [ 3 AMBULATING with Oxygen #1] Oxygen Flow Rate (L/min) 6 Oxygen Delivery Method Nasal Cannula Weight: 77.7 kg Body Mass Index (BMI) 24.5 Intake & Output: Intake and Output for Last 24 Hours 09/10/21 09/11/21 09/12/21 23:59 23:59 23:59 Intake Total 500 / 500 200 / 200 Balance 500 / 500 200 / 200 Medical Nutrition Assessment Dietitian: Malnutrition Criteria Met Start: 09/12/21 17:08 Freq: Status: Active Protocol: Document 09/12/21 17:08 RMA (Rec: 09/12/21 17:08 RMA [id number]) Nutrition Malnutrition Evidence of Malnutrition Exists Yes Malnutrition (severe): Acute Illness/Injury Evidenced By Suboptimal Energy Intake ( Severe),Weight Loss (Severe) Clinical Problem Acute Disease or Injury Related Malnutrition Etiology Severe protein-calorie malnutrition in the context of acute illness related to inadequate oral intake Signs/Symptoms as evidenced by ~5% wt loss x 10-12 days and PO meeting less than 50% estimated nutrition needs Status Active Problem Recommendation Dietitian Recommendations/Changes Continue regular diet w/ ensure compact TID at meals as ordered. Adjust ONS as needed to optimize intake, prevent further wt loss and replete energy. Lab / Micro Data Result Diagrams: 09/12/21 08:09 09/12/21 08:09 Labs: Laboratory Results - last 24 hr 09/11/21 18:48: WBC 6.2, RBC 4.35 L, Hgb 13.1, Hct 39.5 L, MCV 90.8, MCH 30.1, MCHC 33.2, RDW Std Deviation 46.0 H, RDW Coeff of Maxwell 13.7, Plt Count 176, MPV 10.6, Immature Gran % (Auto) 0.800, Neut % (Auto) 79.0 H, Lymph % (Auto) 14.5 L, [place] % (Auto) 5.3, Eos % (Auto) 0.2, Baso % (Auto) 0.2, Absolute Neuts (auto) 4.9, Absolute Lymphs (auto) 0.90, Nucleated RBC % 0, Platelet Estimate ADEQUATE, RBC Morphology NORM C+C 09/11/21 18:48: D-Dimer Quant (PE/DVT) 2.13 H* 09/11/21 18:48: Sodium 135 L, Potassium 3.7, Chloride 101, Carbon Dioxide 26.0, Anion Gap 8, BUN 16, Creatinine 0.88, Estim Creat Clear Calc 83.69, Est GFR (MDRD) Af Amer 112, Est GFR (MDRD) Non-Af 92, BUN/Creatinine Ratio 18.2, Glucose 118 H, Calcium 8.0 L, Total Bilirubin 1.00, AST 36, ALT 22, Alkaline Phosphatase 41 L, Troponin I High Sens 17, Total Protein 6.7, Albumin 2.6 L, Globulin 4.1, Albumin/Globulin Ratio 0.6 L 09/12/21 08:09: Procalcitonin 0.04 09/12/21 08:09: WBC 4.2 L, RBC 4.68, Hgb 14.2, Hct 42.9, MCV 91.7, MCH 30.3, MCHC 33.1, RDW Std Deviation 47.2 H, RDW Coeff of Maxwell 13.9, Plt Count 189, MPV 10.5, Immature Gran % (Auto) 0.900, Neut % (Auto) 69.2, Lymph % (Auto) 23.9, [place] % (Auto) 5.5, Eos % (Auto) 0.0, Baso % (Auto) 0.5, Absolute Neuts (auto) 2.9, Absolute Lymphs (auto) 1.01, Nucleated RBC % 0 09/12/21 08:09: Sodium 144, Potassium 4.1, Chloride 109 H, Carbon Dioxide 25.0, Anion Gap 10, BUN 16, Creatinine 0.75, Estim Creat Clear Calc 101.39, Est GFR (MDRD) Af Amer 135, Est GFR (MDRD) Non-Af 111, BUN/Creatinine Ratio 21.4 H, Glucose 149 H, Calcium 8.4 L, Total Bilirubin 0.90, AST 36, ALT 22, Alkaline Phosphatase 45, Total Protein 6.4, Albumin 2.7 L, Globulin 3.7, Albumin/Globulin Ratio 0.7 L Radiography Diagnostic Testing: Radiology Impression Chest X-Ray 09/11/21 19:15 IMPRESSION: Pulmonary findings appear worse. Electronically Signed: Santos Ryan MD at 19:46 EST , Service support , Chest CTA 09/12/21 07:40 IMPRESSION: Worsening multifocal pneumonia with greater consolidation in the lung bases. A pattern suspicious for Covid pneumonia. Mild to moderate cardiac enlargement. Borderline aneurysmal dilatation of the ascending thoracic aorta. No visualized pulmonary embolism. Electronically Signed: Debbie Chandler MD at 9:55 EST Tel , Service support , Physical Exam Const alert, oriented x3, no apparent distress, average body habitus and well nourished Constitutional Narrative: Upper middle-aged white male sitting up in a chair at the bedside, nursing at bedside, patient appears comfortable and nontoxic, no tachypnea Exam Limitations: no limitations HEENT head/scalp atraumatic, moist oral mucous membranes and oropharynx normal HEENT Narrative: Dentition is good, Mallampati is 2, no thrush Head and Scalp: normocephalic Resp normal respiratory effort, no retractions, no use of accessory muscles and clear to auscultation bilaterally Resp Narrative: Diffusely diminished but no adventitious sounds Auscultation: Negative for crackles, rales, rhonchi or wheezes Cardio regular rhythm, S1 normal heart sound, S2 normal heart sound, no murmurs, no rub, no gallops, no clicks and no JVD Cardio Narrative: Mild bradycardia GI normal to inspection, nondistended, normoactive bowel sounds, soft to palpation, non-tender and non-distended Extremity no clubbing, cyanosis or edema Peripheral Pulses: Yes pulses 2+ throughout Neuro oriented x3, CN's II-XII intact bilaterally, moves all extremities and no focal motor deficits Sensorium / Orientation: awake and alert Speech: speech normal Assessment & Plan Assessment/Plan (1) Acute hypoxemic respiratory failure: (2) Pneumonia due to 2019-nCoV: (3) Elevated d-dimer: PLAN: Acute hypoxic respiratory failure secondary to COVID-19 -Symptom onset 09/02/2021 and will therefore need isolation until 09/22/2020 -Recommend vaccination after out of quarantine -Nonvaccinated -Patient was out of the window for remdesivir on presentation at 11 days -Continue Decadron day 2 of 10 -Pep therapy and incentive spirometer -Had been placed on doxycycline as an outpatient--> doubt microbial infection -Continue doxy -If patient worsens will check sputum culture -Harshal March for cough -Patient is currently on 6 L nasal cannula with oxygen saturations 95 to 98% -Wean O2 as able -Was 87% on room air and required 6 L for ambulation and desatted into the upper 80s -PCT is normal D-dimer elevation -CTA was negative for pulmonary embolism -We will discontinue Eliquis and placed on high-dose prophylactic dose Lovenox Arthritis -continue meloxicam DVT prophylaxis -Lovenox 40 mg BID Code Status Full Code Charges/Coding Visit Charges Inpatient E&M: 76022 Subs Hosp L2
[2021-09-12] MEDS: Enoxaparin 40 MG/0.4 ML Syringe SC (20:39)
[2021-09-12] MEDS: Loperamide 2 MG Capsule PO (20:40)
[2021-09-13] VITALS (10 sets, daily range): BP systolic 108–127; BP diastolic 65–69; PULSE 53–72; RESP 20; TEMP 36.6–36.8; O2SAT 85–97
[2021-09-13 07:02] LABS: Absolute Lymphocyte Count 1.18 X10^3/uL (0.83-4.51); Absolute Neutrophil Count 10.5 X10^3/uL (2.0-7.7); Basophil# 0.02 X10^3/uL; Basophil% 0.2 % (0-1); Hematocrit 40.5 % (40-54); Hemoglobin 13.2 g/dL (13.0-16.5); Lymphocyte # 1.18 X10^3/ul (0.83-4.51); Lymphocyte % 9.3 % (19-41); Mean Corp Hgb Conc 32.6 g/dL (32-36); Mean Corpuscular Hgb 30.3 pg (27.0-32.0); Mean Corpuscular Volume 93.1 fL (80-94); Mean Platelet Vol. 10.5 fl (6.2-12.0); Monocyte# 0.92 X10^3/uL; Monocyte% 7.2 % (0-10); NRBC Flagged by Analyzer 0 % (0-5); Neutrophil # 10.47 X10^3/uL (2.7-7.7); Neutrophil % 82.4 % (47-70); POSITIVE MORPHOLOGY YES; Platelet Count 229 K/mm3 (150-450); RBC Distribution Width CV 13.8 % (11.6-14.6); RBC Distribution Width SD 46.8 fl (35.1-43.9); Red Blood Count 4.35 M/mm3 (4.6-6.2); White Blood Count 12.7 K/mm3 (4.4-11.0)
[2021-09-13 07:11] LABS: Differential Indicated SCAN CRITERIA MET
[2021-09-13 07:26] LABS: Anion Gap 8 (5-15); BUN 23 mg/dL (7-18); BUN/Creat Ratio 28.3 RATIO (10-20); Calcium,Total 8.8 mg/dL (8.5-10.1); Chloride 106 mmol/L (98-107); Creatinine, Serum 0.81 mg/dL (0.70-1.30); EST Glomerular Filtration Rate 101 mL/min (>60); Est Glom Filt Rate - Afr Amer 122 mL/min (>60); Estimated Creatinine Clearance 93.88 ml/min; Glucose 137 mg/dL (74-106); Sodium Level 142 mmol/L (136-145)
[2021-09-13] MEDS: Meloxicam 7.5 MG Tablet PO (09:37)
[2021-09-13] MEDS: Enoxaparin 40 MG/0.4 ML Syringe SC (09:37)
[2021-09-13] MEDS: dexAMETHasone 2 MG TABLET 6 MG PO (09:37)
--- NOTE | 2021-09-13 11:14 | NURSING ---
pt 87% on room air with exertion, o2 reapplied at 4L since was exerting himself and within less than 2 minutes spo2 92% on 4L NC
--- NOTE | 2021-09-13 13:36 | DS.PCM_ITS ---
Providers Date of Admission: 09/11/21 Primary Care Physician: Dr. Martin Kwan DO Reason For Visit: ACUTE HYPOXEMIC RESPIRATORY FAILURE Diagnosis Discharge Diagnosis (1) Acute hypoxemic respiratory failure: Status: Acute Code(s): J96.01 - Acute respiratory failure with hypoxia (2) Pneumonia due to 2019-nCoV: Status: Acute Code(s): U07.1 - COVID-19; J12.82 - Pneumonia due to coronavirus disease 2019 (3) Elevated d-dimer: Status: Acute Code(s): R79.89 - Other specified abnormal findings of blood chemistry Medications at Discharge Home Medications meloxicam 7.5 mg PO DAILY 09/07/21 meclizine 25 mg PO TID PRN 09/11/21 dexamethasone [Decadron] 6 mg PO DAILY #7 tab 09/13/21 Hospital Course Operations None Procedures None Summary of Care Provided Minutes Spent on Discharge: 36 Hospital Course: Mr. Shetty is a 66-year-old white male who presented to the emergency department at [facility] on 09/11/2021 with Covid-like symptoms. He has not been vaccinated. He complained of shortness of breath for approximately 4 days and on the day of presentation he complained that his shortness of breath had worsened. He was found to be hypoxic with an oxygen saturation on room air of 81%. He had associated symptoms that include fever, chills, diarrhea, body ach es, anorexia. He had anosmia and dysgeusia which has resolved. He had had symptoms as described for approximately 11 days prior to presentation and had come to the hospital on 09/07/2021 with shortness of breath at which time he had a CTA that was negative for PE. He was positive for Covid at that emergency department visit. He was able to be sent home on room air and referred for monoclonal antibody infusion however he did not qualify at the time of referral and indicated that he did not want monoclonal antibodies because of the stories he had heard about them previously. He was admitted to the medical floor and required as much as 6 L during his hospitalization. On the day of discharge he was able to be on room air with oxygen saturations 90 to 92% but with ambulation he required 4 L to maintain oxygen saturation 88% and above. During his hospitalization he was maintained on remdesivir and Decadron. The patient was anxious to go home and given his oxygen saturation had stabilized and been able to be weaned to 4 L with exertion only we were comfortable sending him home on 09/13/2021. He was discharged home with supplemental oxygen at 4 L with exertion and none at rest, Decadron to complete a 10-day course, incentive spirometer and Acapella to be continued at home, and instructions to return back to the hospital if his oxygen saturation dropped below 88% on the oxygen at which she was discharged. He reported he did have a pulse oximetry at home. He is to maintain quarantine until 09/22/2021. We have recommend vaccination after that time. Of note a procalcitonin was obtained on admission and was normal. A CTA was repeated given an elevated D-dimer and it was negative for pulmonary embolism. During his hospital course he was maintained on prophylactic dose Lovenox. He was discharged home in stable condition and instructed to follow-up with his primary care physician within 1 week after he completes his quarantine or present back to the hospital if he worsens as noted above. Discharge diagnoses: Acute hypoxic respiratory failure COVID-19 pneumonia D-dimer elevation Arthritis Physical Exam Const alert, oriented x3, no apparent distress, average body habitus and well nourished Constitutional Narrative: Upper middle-aged white male sitting up in a chair at the bedside, patient appears comfortable and nontoxic, no tachypnea, currently on room air and oxygen saturations 90 to 92% at rest General Appearance: cooperative, comfortable, well kempt and well developed Orientation / Consciousness: awake Exam Limitations: no limitations HEENT normocephalic, head/scalp atraumatic, hearing grossly normal bilaterally, moist oral mucous membranes and oropharynx normal HEENT Narrative: No thrush, Mallampati 2 Eyes PERRL, EOMs intact bilaterally and conjunctivae normal Eyes Narrative: No scleral icterus Neck no lymphadenopathy, supple and no JVD Neck Narrative: Trachea midline, no thyroid enlargement Resp normal respiratory effort, no retractions, no use of accessory muscles and clear to auscultation bilaterally Resp Narrative: Diffusely diminished with few crackles at bases bilaterally Auscultation: crackles; Negative for rales, rhonchi or wheezes Cardio regular rhythm, S1 normal heart sound, S2 normal heart sound, no murmurs, no rub, no gallops, no clicks and no JVD Cardio Narrative: Mild bradycardia GI normal to inspection, nondistended, normoactive bowel sounds, soft to palpation, non-tender and non-distended Extremity normal to inspection and no clubbing, cyanosis or edema Skin no rashes or lesions noted, no wounds, skin turgor normal and no jaundice Neuro oriented x3, CN's II-XII intact bilaterally, moves all extremities and no focal motor deficits Sensorium / Orientation: awake and alert Speech: speech normal Motor Exam: strength 5/5 throughout Psych affect normal Psych Narrative: Very pleasant, appears well, appropriate interaction Medical Records Data Medical Nutrition Assessment Dietitian: Malnutrition Criteria Met Start: 09/12/21 17:08 Freq: Status: Active Protocol: Document 09/12/21 17:08 RMA (Rec: 09/12/21 17:08 RMA [id number]) Nutrition Malnutrition Evidence of Malnutrition Exists Yes Malnutrition (severe): Acute Illness/Injury Evidenced By Suboptimal Energy Intake ( Severe),Weight Loss (Severe) Clinical Problem Acute Disease or Injury Related Malnutrition Etiology Severe protein-calorie malnutrition in the context of acute illness related to inadequate oral intake Signs/Symptoms as evidenced by ~5% wt loss x 10-12 days and PO meeting less than 50% estimated nutrition needs Status Active Problem Recommendation Dietitian Recommendations/Changes Continue regular diet w/ ensure compact TID at meals as ordered. Adjust ONS as needed to optimize intake, prevent further wt loss and replete energy. Weight / BMI Weight Weight: 77.7 kg Body Mass Index (BMI) 24.5 ABG / Lab / Microbiology Data Result Diagrams: 09/13/21 05:45 09/13/21 05:45 Laboratory: Laboratory Results - last 24 hr 09/13/21 05:45: WBC 12.7 H, RBC 4.35 L, Hgb 13.2, Hct 40.5, MCV 93.1, MCH 30.3, MCHC 32.6, RDW Std Deviation 46.8 H, RDW Coeff of Maxwell 13.8, Plt Count 229, MPV 10.5, Immature Gran % (Auto) 0.900, Neut % (Auto) 82.4 H, Lymph % (Auto) 9.3 L, Dawson % (Auto) 7.2, Eos % (Auto) 0.0, Baso % (Auto) 0.2, Absolute Neuts (auto) 10.5 H, Absolute Lymphs (auto) 1.18, Nucleated RBC % 0 09/13/21 05:45: Sodium 142, Potassium 4.0, Chloride 106, Carbon Dioxide 28.0, Anion Gap 8, BUN 23 H, Creatinine 0.81, Estim Creat Clear Calc 93.88, Est GFR (MDRD) Af Amer 122, Est GFR (MDRD) Non-Af 101, BUN/Creatinine Ratio 28.3 H, Glucose 137 H, Calcium 8.8 D/C Instructions Discharge Diet: No restrictions Discharge Activity: Return to Normal Activity Return to work on: 09/23/21 Call your doctor if you observe: Fever of 101 or Higher, Shortness of breath and - (Pulse ox less than 88% on the oxygen at which you are discharged) Meaningful Use Info Meaningful Use Diagnoses (Choose all that apply): None applicable Discharge Plan Admission Admit Date/Time: 09/11/21 21:56 Primary Reason for Your Visit: Acute hypoxic respiratory failure secondary to COVID-19 pneumonia Attending Provider: Nadiya Cristina Primary Care Provider: Martin Kwan Instructions Additional Instructions / Restrictions: 1. Please check pulse oximetry periodically throughout the day and represent to the emergency department if your oxygen levels dropped below 88% on the oxygen you were discharged which is 4 L 2. Continue Decadron for 7 more days 3. He will need to quarantine until 09/22/2021 4. Please continue incentive spirometer and Acapella as instructed 5. Recommend vaccination after out of quarantine with either Pfizer or Moderna vaccine 6. Follow-up with your primary care physician within the week after you complete quarantine Discharge Orders/Prescriptions Prescriptions: New dexamethasone [Decadron] 6 mg tablet 6 mg PO DAILY Qty: 7 RF: 0 Continued meloxicam 15 mg tablet 7.5 mg PO DAILY RF: 0 meclizine 25 mg Tablet 25 mg PO TID PRN (Reason: Dizziness) RF: 0 Discontinued doxycycline hyclate 100 mg Tablet 100 mg PO BID RF: 0 Referrals / Follow Up: Martin Kwan DO [Primary Care Provider] - Disposition Disposition (needs filled in before D/C Order can be placed): Home, Self Care Charges/Coding Visit Charges Inpatient E&M: 14714 Disch Hosp
== END 2021-09-13 15:56 | disposition home or self-care (01) | DRG 177 ==
LOC: ED 22:04 → MS3 09-12 06:55
PROVIDERS: Admitting Provider Hospitalist; Emergency Provider Student in an Organized Health Care Education/Training Program; PCP Family Medicine; Visit Provider Internal Medicine
DX: U07.1 COVID-19 (principal); J96.01 Acute respiratory failure with hypoxia; J12.82 Pneumonia due to coronavirus disease 2019; J15.9 Unspecified bacterial pneumonia; M19.90 Unspecified osteoarthritis, unspecified site; R79.89 Other specified abnormal findings of blood chemistry; Z79.1 Long term (current) use of non-steroidal anti-inflammatories (NSAID); Z79.899 Other long term (current) drug therapy; Z96.641 Presence of right artificial hip joint
CPT/HCPCS: 36415; 71045; 71275; 80048; 80053; 84145; 84484; 85025; 85379; 93005; 94667; 94762; 96361; 96372; 96374; 97802; 99218; 99251; 99285; J7040; Q9967; A4216; G0378; G0463

== ENCOUNTER 2021-11-24 06:58 | Day surgery (SDC) | payer MEDICARE, SELFPAY ==
[2021-11-24 07:21] VITALS: BP 127/89; PULSE 57; RESP 16; TEMP 36.1; O2SAT 100; BMI 25.8
[2021-11-24] MEDS: Lactated Ringers 1,000 ML 15 ML IV (07:26)
--- NOTE | 2021-11-24 07:36 | HP.PCM_ITS ---
HPI - General HPI Narrative ENRIQUE FORD, is a 66 M who presents for colonoscopy today. He presents via open access. 10 years ago was his previous one. No personal history of colon polyps or colon cancer. He did have Covid-19 extending from August into September 2021. He did require hospitalization and he did require oxygen therapy. He feels like he is completely recovered. No bright red blood per rectum no melena. No unexpected weight loss PFSH Medical History (Updated 11/24/21 @ 07:[address] Jose Shannon MD) Alcohol use Anemia Arthritis Blackout Excessive bleeding History of edema Non-smoker Pneumonia due to 2019-nCoV Pulmonary embolism Home Medications meloxicam 7.5 mg PO DAILY 09/07/21 [History Last Taken 08/29/21] ferrous sulfate 325 mg PO QODAY 11/05/21 [History Last Taken Unknown] [id number] [Osteo Bi-Flex (5-Loxin)] 1 tab PO DAILY 11/05/21 [History Last Taken Unknown] Allergy/AdvReac Type Severity Reaction Status Date / Time No Known Allergies Allergy Verified 11/24/21 07:21 Family History Other Atrial fibrillation Glaucoma Surgical History (Updated 11/05/21 @ 14:27 by Kathrine Gruber) History of arthroscopic knee surgery History of right hip replacement History of rotator cuff surgery Social History Smoking Status: Never smoker ROS Constitutional Constitutional: Reports systems reviewed and no addt'l complaints, except as documented Cardiovascular Cardiovascular: Denies chest pain Respiratory/Chest Respiratory/Chest: Denies shortness of breath at rest Gastrointestinal Gastrointestinal: Denies abdominal pain, change in bowel habits, hematochezia or melena Vital Signs Vital Signs Vital Signs: 11/24/21 07:21 Temperature 97 F L Temperature Source Temporal Pulse Rate 57 L Respiratory Rate 16 Respiratory Pattern Normal Blood Pressure 127/89 H Blood Pressure Mean 101 Blood Pressure Source Monitor Blood Pressure Position Semi-Fowlers Blood Pressure Location Left Arm Pulse Ox 100 Oxygen Delivery Method Room Air Weight Weight: 174 lb 13.225 oz Body Mass Index (BMI) 25.8 Physical Exam Const alert, oriented x3 and no apparent distress General Appearance: cooperative and comfortable Eyes General Eye: normal appearance of both eyes Neck General: normal visual inspection Chest inspection of chest normal Resp Effort and Inspection: able to speak in complete sentences and symmetric chest movement Auscultation: clear to auscultation bilaterally Cardio regular rate and regular rhythm GI soft to palpation, non-tender and non-distended Extremity no calf tenderness Neuro oriented x3 Psych thought process normal Assessment & Plan Assessment/Plan (1) Screening for intestinal cancer: PLAN: The patient presents via open access today for screening colonoscopy with possible biopsy or polypectomy as indicated. He is aware of the technique, benefit, risk, alternatives. He has had an opportunity to ask and have questio ns answered. We will proceed as noted. Jose Shannon M.D., F.A.C.S.
[2021-11-24 08:40] VITALS: BP 127/89; BP 96/71; PULSE 60; RESP 14; TEMP 36.2; O2SAT 96
--- NOTE | 2021-11-24 08:40 | OP.CCLET_ITS ---
11/24/2021 Martin Kwan Re : Colonoscopy procedure for Rosales Shetty Dear Aniya This procedure was performed on Wednesday, November 24, 2021. My impressions and recommendations are as follows: Impressions : - Diverticulosis in the entire examined colon. - The examination was otherwise normal. - No specimens collected. Recommendations : - Discharge patient to home. - Resume previous diet. - Continue present medications. - Repeat colonoscopy in 10 years for screening purposes. My findings are described in the full procedure note, which is enclosed. If I can be of further assistance, please feel free to contact me at Doctor phone number(s): Work: . Sincerely, Jose Shannon MD 11/24/2021 8:39:50 AM This report has been signed electronically.
--- NOTE | 2021-11-24 08:40 | OP.COLON_ITS ---
Patient Name: Rosales Shetty Procedure Date: 11/24/2021 8:14 AM Date of : 1955 Age: 66 Procedure: Colonoscopy Indications: Screening for colorectal malignant neoplasm Providers: Jose Shannon MD Referring MD: Jose Shannon MD Medicines: See the Anesthesia note for documentation of the administered medications Patient Profile: Last Colonoscopy: 10 years ago. Complications: No immediate complications. Procedure: Pre-Anesthesia Assessment: - Prior to the procedure, a History and Physical was performed, and patient medications and allergies were reviewed. The patient's tolerance of previous anesthesia was also reviewed. The risks and benefits of the procedure and the sedation options and risks were discussed with the patient. All questions were answered, and informed consent was obtained. Prior Anticoagulants: The patient has taken no previous anticoagulant or antiplatelet agents. ASA Grade Assessment: II - A patient with mild systemic disease. After reviewing the risks and benefits, the patient was deemed in satisfactory condition to undergo the procedure. After I obtained informed consent, the scope was passed under direct vision. Throughout the procedure, the patient's blood pressure, pulse, and oxygen saturations were monitored continuously. The adult colonoscope was introduced through the anus and advanced to the cecum, identified by appendiceal orifice and ileocecal valve. The colonoscope was introduced through the and advanced to. The colonoscopy was performed without difficulty. The patient tolerated the procedure well. The quality of the bowel preparation was good. The ileocecal valve and the appendiceal orifice were photographed. Scope In: 8:25:32 AM Scope Withdrawal Time 0 hours 6 minutes 0 seconds Scope Out: 8:35:28 AM Total Procedure Duration Time 0 hours 9 minutes 56 seconds Findings: The digital rectal exam was normal. Scattered diverticula were found in the entire colon. The exam was otherwise without abnormality. Impression: - Diverticulosis in the entire examined colon. - The examination was otherwise normal. - No specimens collected. Recommendation: - Discharge patient to home. - Resume previous diet. - Continue present medications. - Repeat colonoscopy in 10 years for screening purposes. Procedure Code(s): --- Professional --- 98991, Colonoscopy, flexible; diagnostic, including collection of specimen(s) by brushing or washing, when performed (separate procedure) Diagnosis Code(s): --- Professional --- Z12.11, Encounter for screening for malignant neoplasm of colon K57.30, Diverticulosis of large intestine without perforation or abscess without bleeding CPT copyright 2017 [employer]. All rights reserved. The codes documented in this report are preliminary and upon rapid extractor operator review may be revised to meet current compliance requirements. Jose Shannon MD 11/24/2021 8:39:50 AM This report has been signed electronically. Number of Addenda: 0 Note Initiated On: 11/24/2021 8:14 AM
[2021-11-24 08:45] VITALS: BP 103/79; BP 127/89; PULSE 58; RESP 16; O2SAT 96
[2021-11-24 08:50] VITALS: BP 127/89; BP 93/62; PULSE 62; RESP 16; O2SAT 100
[2021-11-24 08:55] VITALS: BP 127/89; BP 97/70; PULSE 54; RESP 14; TEMP 36.7; O2SAT 97
[2021-11-24 09:16] VITALS: BP 127/89
== END 2021-11-24 23:59 | disposition home or self-care (01) ==
LOC: EN 06:59 → AC 06:59
PROVIDERS: PCP Family Medicine; Referring Provider Surgery; Visit Provider Surgery
PROC: 0DJD8ZZ Inspection of Lower Intestinal Tract, Via Natural or Artificial Opening Endoscopic (ICD-10-PCS; CPT 45378; principal; 2021-11-24 07:55)
DX: Z12.11 Encounter for screening for malignant neoplasm of colon (principal); K57.30 Diverticulosis of large intestine without perforation or abscess without bleeding; Z86.16 Personal history of COVID-19; Z86.711 Personal history of pulmonary embolism; Z79.899 Other long term (current) drug therapy
CPT/HCPCS: G0121; J7120; J2405

== ENCOUNTER → 2022-10-13 | Outpatient (CLI) | payer MEDICARE, SELFPAY ==
--- NOTE | 2022-10-13 08:52 | CDU_ITS ---
Reason For Study: Vision loss Rt. Velocities/BP Lt. Velocities/BP Prox CCA 64.5/16.3 cm/sec. Prox CCA 86.1/20.1 cm/sec. Mid CCA 68.3/21.1 cm/sec. Mid CCA 72.9/20.1 cm/sec. Dist CCA 65.5/21.1 cm/sec. Dist CCA 67.4/20.1 cm/sec. Prox ICA 54.1/14.5 cm/sec. Prox ICA 56.4/14.6 cm/sec. Mid ICA 66.4/26.7 cm/sec. Mid ICA 60.8/23.4 cm/sec. Dist ICA 64.5/24.8 cm/sec. Dist ICA 71.8/27.8 cm/sec. Rt. ICA/CCA = 1.01. Lt. ICA/CCA = 0.98. Prox ECA 86.3/13.5 cm/sec. Prox ECA 85/12.4 cm/sec. Rt. Vert. 30.5/11.6 cm/sec. Lt. Vert. 38.6/13.3 cm/sec. Right Extracranial There is intimal thickening but no significant atherosclerotic plaque noted in the right common carotid artery. There is heterogeneous, smooth atherosclerotic plaque noted in the right internal carotid artery. There is intimal thickening but no significant atherosclerotic plaque noted in the right external carotid artery. Antegrade flow is noted in the right vertebral artery. Left Extracranial There is intimal thickening but no significant atherosclerotic plaque noted in the left common carotid artery. There is intimal thickening but no significant atherosclerotic plaque noted in the left internal carotid artery. There is intimal thickening but no significant atherosclerotic plaque noted in the left external carotid artery. Antegrade flow is noted in the left vertebral artery. Procedure Carotid Duplex [id number]. This is a Carotid Duplex examination using B-mode, color flow and specral Doppler. Exam performed in department. VL/Carotid Duplex Ultrasound Interpretation Summary Smooth calcific plaque in the proximal right internal carotid artery with less than 50% stenosis Less than 50% stenosis right external carotid artery Intimal thickening at the proximal left internal carotid artery with less than 50% stenosis Less than 50% stenosis left external carotid artery Patent and antegrade vertebral arteries bilaterally Ordering Physician: Mo Hopkins Referring Physician: Martin Kwan Performed By: Blanca Henry RVT
== END | disposition home or self-care (01) ==
PROVIDERS: PCP Family Medicine; Referring Provider Ophthalmology; Visit Provider Ophthalmology
DX: H53.121 Transient visual loss, right eye (principal)
CPT/HCPCS: 93880

== ENCOUNTER → 2024-11-08 | Outpatient (CLI) | payer MEDICARE, SELFPAY | END | disposition home or self-care (01) | PROVIDERS: PCP Family Medicine; Referring Provider Orthopaedic Surgery; Visit Provider Orthopaedic Surgery | DX: Z01.810 Encounter for preprocedural cardiovascular examination (principal) | CPT/HCPCS: 93005 ==